=== PATIENT | female | born 1970 | race African-American/Black ===

== ENCOUNTER 2017-12-24 05:29 | Day surgery (SDC) | payer OTHER ==
[2017-12-22 17:57] VITALS: BMI 23.3
--- NOTE | 2017-12-24 06:20 | HP ---
History & Physical Update - Physical Physical: No Change - Assessment Assessment: No Change - Plan Plan: No Change (for hysteroscopy, D&C, possible polypectomy)
[2017-12-24] MEDS ORDERED: MIDAZOLAM HCL 2 MG/2 ML SINGLE DOSE VIAL ONE (14:03)
[2017-12-24] MEDS ORDERED: SUCCINYLCHOLINE CHLORIDE 200 MG/10 ML VIAL ONE (14:04)
[2017-12-24] MEDS ORDERED: PROPOFOL 20 ML ONE (14:05)
[2017-12-24] MEDS ORDERED: LIDOCAINE HCL/PF 2% SDV 5ML VIAL ONE (14:05)
[2017-12-24] MEDS ORDERED: ONDANSETRON 4 MG/2 ML VIAL IVPUSH PRN ×2 (14:11→15:05)
[2017-12-24] MEDS ORDERED: LACTATED RINGERS SOLUTION 1,000 ML IV SCH (14:15)
[2017-12-24] MEDS ORDERED: DESFLURANE GAS 240 ML BOTTLE IH ONE (14:24)
[2017-12-24] MEDS ORDERED: KETOROLAC TROMETHAMINE 30 MG/1 ML VIAL ONE (14:53)
[2017-12-24] MEDS ORDERED: oxyCODONE HCL 5 MG TABLET PO PRN (15:05)
[2017-12-24] MEDS ORDERED: IBUPROFEN 800 MG/8 ML IJ IVPB PRN (15:05)
[2017-12-24] MEDS ORDERED: IBUPROFEN 600 MG TABLET (FP) PO PRN (15:05)
[2017-12-24] MEDS ORDERED: ELECTROLYTE-148 SOLN 1,000 ML IV SCH (15:15)
[2017-12-24 16:59] VITALS: TEMP 97.3
[2017-12-24 17:54] VITALS: BP 140/80; PULSE 84
--- NOTE | 2017-12-28 18:50 | PATH ---
Surgical Pathology Report Patient Name: YAA BARNHART [facility]. Rec. #: [id number] /Age/Gender: 1970 (Age: 47) / F Account: [id number] Location: [facility] SURGICAL Taken: 12/24/2017 Received: 12/27/2017 Reported: 12/28/2017 Physicians: Francisco Murillo M.D. Specimen(s) Received ENDOMETRIAL CURETTINGS Clinical History Endometrial hyperplasia, fibroid uterus Final Diagnosis ENDOMETRIAL CURETTINGS, DILATION AND CURETTAGE: SCANT FRAGMENTS OF WEAKLY PROLIFERATIVE ENDOMETRIUM AND SUPERFICIAL MYOMETRIUM. Electronically Signed Eileen Jacinto M.D. Gross Description Received in formalin labeled "endometrial curettings," is a 0.9 x 0.6 x 0.2 cm aggregate of espinal soft tissue fragments. The formalin is filtered and the specimen is entirely submitted in one cassette. /12/27/201712/27/2017
--- NOTE | 2018-01-02 14:14 | OP ---
DATE OF OPERATION: 12/27/2017 PREOPERATIVE DIAGNOSIS: Thickened endometrium, rule out endometrial polyp. POSTOPERATIVE DIAGNOSIS: Thickened endometrium, rule out endometrial polyp. PROCEDURE: Hysteroscopy, dilatation and curettage and resection of the endometrial polyp. SURGEON: KORINA KC MD ANESTHESIA: General. ESTIMATED BLOOD LOSS: 25 mL. OPERATION: Patient was taken to the operating room, had adequate general anesthesia. Examination under anesthesia revealed external genitalia to be normal. Vagina was normal. Cervix was clean, no gross lesions. Uterus was retroverted and normal size. Adnexa: No masses were palpable. Then with a weighted speculum in the vagina, the anterior lip of cervix was grasped with a single-toothed tenaculum and then the cervix was difficult to dilate because of the retroversion and stenosis. After dilation of the cervix the Symphion resectoscope was introduced. Visualization of the endocervix and appeared to be normal. Endometrium was atrophied for the most part and just had a small polyp at the left cornu of the uterus. No other abnormality was identified. Then the polyp was resected and the endometrium was curetted. A small amount of tissue was obtained. The patient tolerated the procedure well, left the OR in good condition. KORINA KC M.D. [id number]
== END 2017-12-24 17:40 | disposition home or self-care (01) ==
LOC: JASU-SURG 05:29
PROVIDERS: ATTEND Obstetrics & Gynecology
PROC: 0UB98ZX Excision of Uterus, Via Natural or Artificial Opening Endoscopic, Diagnostic (ICD-10-PCS; principal; 2017-12-24 14:00)
PROC: 0UDB8ZX Extraction of Endometrium, Via Natural or Artificial Opening Endoscopic, Diagnostic (ICD-10-PCS; 2017-12-24 14:00)
DX: N85.00 Endometrial hyperplasia, unspecified (principal); N84.0 Polyp of corpus uteri; N88.2 Stricture and stenosis of cervix uteri
CPT/HCPCS: 84703; 88305-TC; 94760